=== PATIENT | male | born 1960 | race African-American/Black ===

== ENCOUNTER 2017-08-20 11:06 | Emergency (ER) | payer OTHER, MEDICAID ==
[2017-08-20] MEDS ORDERED: Lidocaine 1% 30 ML SDV INJECT ONE (11:20)
--- NOTE | 2017-08-20 13:00 | EDM.PDOC ---
ED HPI GENERAL MEDICAL PROBLEM - General Chief Complaint: Laceration Stated Complaint: FINGER LACERATION Time Seen by Provider: 08/20/17 11:06 Source of Information: Reports: Patient History Limitations: Reports: No Limitations - History of Present Illness INITIAL COMMENTS - FREE TEXT/NARRATIVE: Pt. presents to ER with complaints of a finger laceration. 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 Pt. is extremely upset about the injury and is initially refusing sutures. Pt. stated to the affirmative that he cut it but would not elaborate as to how the injury happened. He is upset that admitting is attempting to get his demographic information or when ER staff attempts to get his medical info. Onset: Today Location: Reports: Upper Extremity, Left Quality: Reports: Ache - Related Data Allergies Allergy/AdvReac Type Severity Reaction Status Date / Time Unable to Assess Allergy Unverified 08/20/17 11:20 ED ROS GENERAL - Review of Systems Review Of Systems: See Below Constitutional: Reports: No Symptoms Musculoskeletal: Reports: Hand Pain, Other (laceration to index finger of R fingertip. ) Skin: Reports: No Symptoms Neurological: Reports: No Symptoms ED EXAM, GENERAL - Physical Exam Exam: See Below Extremities: Other (3 cm laceration/avulsion to R index finger. The tissue is somewhat macerated, but he will not elaborate how the accident happend.) ED GENERAL MEDICAL PROCEDURES - Laceration/Wound Repair Right Finger Appearance: Subcutaneous Distal NVT: Neuro & Vascular Intact, No Tendon Injury Anesthetic Type: Digital Local Anesthesia - Lidocaine (Xylocaine): 1% Plain Local Anesthetic Volume: 4cc Skin Prep: Chlorhexidine (Hibiciens), Saline Exploration/Debridement/Repair: Wound Explored Closed with: Sutures Suture Size: 4-0 (approx 1 cm long area of skin is missing from the medial edge of the laceration) Course - Orders/Labs/Meds Meds: Medications Discontinued Medications Generic Name Dose Route Start Last Admin Trade Name Noy PRN Reason Stop Dose Admin Lidocaine HCl 30 ml 08/20/17 11:20 08/20/17 11:39 Xylocaine-Mpf 1% INJECT 08/20/17 11:21 30 ml ONETIME ONE Administration Departure - Departure Time of Disposition: 12:00 Disposition: Home, Self-Care 01 Clinical Impression: Broken skin, Laceration of finger - Discharge Information Instructions: Laceration Care, Adult Forms: ED Department Discharge Additional Instructions: Sutures out with your primary in 12 days. Keep covered until Saturday. Return if redness, swelling, or discharge from the area.
== END 2017-08-20 12:00 | disposition home or self-care (01) ==
LOC: VM.ED 11:06
DX: S61.210A Laceration without foreign body of right index finger without damage to nail, initial encounter (principal); W45.8XXA Other foreign body or object entering through skin, initial encounter; Y99.0 Civilian activity done for income or pay
CPT/HCPCS: 12002; 99283